=== PATIENT | female | born 2000 | race Two or more races ===

== ENCOUNTER → 2025-02-22 | Day surgery (SDC) | payer OTHER ==
[~2025-02-22] VITALS: Ht 162.6 cm; Wt 54.4 kg
[~2025-02-22] MED LIST: 0.9 % SODIUM CHLORIDE 1,000 ML IV SCH; CEFAZOLIN SODIUM 1,000 MG VIAL IV ONE; CEFAZOLIN SODIUM 1,000 MG VIAL ONE; FAMOTIDINE/PF 20 MG in 0.9 % SODIUM CHLORIDE 8 ML IV PUSH ONE; FAMOTIDINE/PF 20 MG/2 ML VIAL ONE; METHYLERGONOVINE MALEATE 0.2 MG/ML AMPUL ONE; ONDANSETRON HCL 2 MG/ML VIAL ONE; ONDANSETRON HCL 4 MG in 0.9 % SODIUM CHLORIDE 50 ML IV ONE; OXYTOCIN 10 UNITS/ML VIAL ONE; PROMETHAZINE HCL 50 MG/ML AMPUL IM ONE
--- NOTE | 2025-02-22 06:30 | NUR ---
SE RECIBE PTE ALERTA Y ORIENTADA X3 EN AMBULANCIA. REFIERE SANGRADO VAGINAL ABUNDANTE DESDE LAS 5AM. EMBARAZADA DE 14 SEMANAS. PTE DE DRA. WATTERS. SE MIDE SV Y SE UBICA
--- NOTE | 2025-02-22 08:06 | NUR ---
SE ORIENTA A PACIENTE SOBRE TRATAMIENTO MEDICO, REFIERE ENTENDER. SE REALIZAN MUESTRAS DE LABORATORIO BAJO MEDIDAS ASEPTICAS. SE ADMINISTRA IV'S Y MEDICAMENTOS LORETO ORDEN MEDICA. SE COORDINA SONOGRAMA. PENDIENTE RE-EVALUACION MEDICA.
[2025-02-22 08:15] LABS: BASO % 0.3 % (0.1-1.2); EOS # 0.04 (0.04-0.54); EOS % 0.3 % (0.7-7.0); LYMPH # 1.00 (1.18-3.74); LYMPH % 8.1 % (19.3-53.1); MEAN PLATELET VOLUME 10.80 fl (9.4-12.4); MONO # 0.68 (0.24-0.82); MONO % 5.5 % (4.7-12.5); NEUT # 10.53 (1.56-6.13); NEUT % 85.3 % (34.0-71.1); RED CELL DISTRIBUTION WIDTH 13.0 % (11.6-14.4)
[2025-02-22 08:43] LABS: ALT/SGPT 11.0 U/L (12-78); AST/SGOT 10.0 U/L (15-37); BILIRUBIN TOTAL 0.19 mg/dL (0.3-1.2); BUN CREA RATIO 13.0 (7.0-25.0); CREATININE SERUM 0.47 mg/dL (0.55-1.02); GFR 164.21; GLOBULINA 3.9 G/DL (2.4-3.5); GLUCOSE FASTING 89.0 mg/dL (65-100); INR 0.99; OSMOLALITY SERUM 276.0 MOSM/KG (275-295)
[2025-02-22 19:34] VITALS: BP 107/66; O2SAT 100
== END | disposition home or self-care (01) ==
LOC: ER 06:20 → CIR.AMB 07:10 → O/R 10:11 → ER 10:11 → EDSTATUS 11:00 → O/R 19:25
PROVIDERS: General Practice; ATTEND Obstetrics & Gynecology
DX: O03.4 Incomplete spontaneous abortion without complication (principal)